=== PATIENT | male | born 1965 | race African-American/Black ===

== ENCOUNTER 2019-11-05 09:17 | Outpatient (CLI) | payer OTHER ==
--- NOTE | 2019-11-05 11:27 | Fluoroscopy Report ---
BARIUM SWALLOW Indication: DYSPHAGIA,UNSPECIFIED. Technique: Single and double contrast barium technique utilized to evaluate the esophagus. FINDINGS: To begin the exam, swallowing was evaluated in the lateral position under direct fluorosco py. Swallowing was normal. No mucosal irregularity, mass, mass effect, or critical stenosis. There were no abnormal tertiary c ontractions as seen with dysmotility. No gastroesophageal reflux or hiatal hernia was witnessed. The patient was able to pass a barium tablet without difficulty.. IMPRESSION: Normal esophagus. Fluoroscopic time: 0.8 minutes Number of fluoroscopic images: 25 Signer Name: Eligio Ortega Jr, MD Signed: 11/05/2019 11:22 AM Workstation Name: [id number]
== END 2019-11-05 09:18 | disposition home or self-care (01) ==
LOC: FLUORO 09:17
PROVIDERS: ATTEND Otolaryngology
DX: R13.10 Dysphagia, unspecified (principal)
CPT/HCPCS: 74220